=== PATIENT | female | born 1980 | race Caucasian/White ===

== ENCOUNTER 2017-08-16 20:22 | Emergency (ER) | payer OTHER, BC ==
[~2017-08-16] VITALS: Ht 162.6 cm; Wt 117.8 kg
[~2017-08-16 20:22] MED LIST: AMARYL1 MG; AMARYL1 MG PO; CIPRO500 MG PO; FLAGYL500 MG PO; GLUCOPHAGE XR1000 MG; LEVEMIR FL100 UNIT/1 SC; LISINOPRIL-HCT1 EACH PO; LOSARTAN-HCTZ1 EAC2; METFORMIN HCL1000 MG PO; NOVOLOG 10100 UNITS/ SC; NOVOLOG PE100 UNITS/ SC; PRAVASTATIN SOD20 MG PO; PRILOSEC OTC20 MG PO; PRILOSEC20 MG PO; ZANTAC150 MG PO; ZOFRAN ODT4 MG PO; ZOFRAN ODT8 MG PO
[2017-08-16 20:45] LABS: ADD MIUA? YES; BILIRUBIN NEGATIVE; BLOOD LARGE; COLOR AMBER ((YELLOW)); GLUCOSE (STRIP) NEGATIVE; KETONES 5; LEUKOCYTES TRACE; NITRITE NEGATIVE; PROTEIN (STRIP) 100; SPECIFIC GRAVITY 1.027 (1.000-1.030)
[2017-08-16 21:08] LABS: HEMATOCRIT 41.7 % (36.0-46.0); MCH 27.9 PG (29.0-34.0); MCHC 32.9 G/DL (30.0-36.0); MCV 84.9 FL (83-99); MEAN PLAT.VOLUME 8.8 uM^3 (9.5-12.4); PLATELET COUNT 248 K/uL (156-360); RBC DIS.WIDTH-CV 12.9 % (11.8-14.6); RBC DIS.WIDTH-SD 39.6 % (39-53); RED BLOOD COUNT 4.91 M/uL (3.80-5.20); WHITE BLOOD COUNT 8.4 K/uL (4.1-10.2)
[2017-08-16 21:14] LABS: CRYSTALS PRESENT
[2017-08-16 21:15] LABS: CALCIUM OXALATE CRYSTALS 3+ /HPF; CASTS PRESENT /LPF; MUCUS 3+ /LPF
[2017-08-16 21:16] LABS: EPITHELIAL CELLS 2+ /HPF; FINE GRANULAR CASTS 0-5 /LPF; HYALINE CASTS 40-50 /LPF; WHITE BLOOD CELLS 0-5 /HPF (0-5)
[2017-08-16 21:17] LABS: BACTERIA 1+ /HPF; UCUL ADDED? NO
[2017-08-16 21:21] LABS: CHLORIDE 101 mEq/L (99-109); POTASSIUM 3.9 mEq/L (3.7-5.4); SODIUM 141 mEq/L (136-147)
[2017-08-16 21:23] LABS: GLUCOSE 132 mg/dL (70-99)
[2017-08-16 21:25] LABS: ANION GAP 13 MEQ/L (2-14); TOTAL BILIRUBIN 0.4 mg/dL (0.0-1.0)
[2017-08-16 21:27] LABS: ALKALINE PHOSPHATASE 47 IU/L (3-129); GFR ESTIMATE (CALCULATED) > 59 mL/min/
[2017-08-16 21:28] LABS: UREA NITROGEN (BUN) 16 mg/dL (9-23)
[2017-08-16 21:38] LABS: QUANTITATIVE HCG < 4.0 MIU/ML
[2017-08-16 22:12] LABS: DIRECT BILIRUBIN 0.2 mg/dL (0.0-0.3); LIPASE 12 U/L (1.0-51.0)
[2017-08-16] MEDS ORDERED: INSULIN PUMP MC (22:30)
[2017-08-16 23:59] LABS: POINT-OF-CARE METER ID UU13113778
[2017-08-17] MEDS ORDERED: CIPRO500 MG PO (01:28)
[2017-08-17 01:37] VITALS: BP 146/87
== END 2017-08-17 01:38 | disposition home or self-care (01) ==
LOC: EME 20:22
PROVIDERS: Physician Assistant
DX: N39.0 Urinary tract infection, site not specified (principal); R19.7 Diarrhea, unspecified; R31.9 Hematuria, unspecified; I10 Essential (primary) hypertension; E11.9 Type 2 diabetes mellitus without complications; Z79.4 Long term (current) use of insulin; Z88.0 Allergy status to penicillin; Z87.891 Personal history of nicotine dependence
CPT/HCPCS: 74176; 80053; 81003; 82248; 82948; 83690; 84702; 85027; 99281; 99285; J2405; J3010; J7030; S0028